=== PATIENT | male | born 1980 | race Two or more races ===

== ENCOUNTER 2016-12-05 10:37 | Emergency (ER) | payer SELFPAY ==
[2016-12-05 10:56] VITALS: BP 131/74
--- NOTE | 2016-12-05 11:10 | EDM.PDOC ---
ED HPI GENERAL MEDICAL PROBLEM - General Chief Complaint: Eye Problems Stated Complaint: ITCHY EYES Time Seen by Provider: 12/05/16 11:00 Source of Information: Reports: Patient History Limitations: Reports: No Limitations - History of Present Illness INITIAL COMMENTS - FREE TEXT/NARRATIVE: 36-year-old male [place] descent presents to the ED with severe itching of both eyes 3 days. It appears this is most likely due to outside exposure to pollen such as ragweed and [place] which are rampant this time of year. 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 No recent exposure to any pets or animal danders. Exam reveals marked injection of both conjunctiva worse on the right as compared to the left with edema of the conjunctiva on the right. Treatment is Pred Forte [place] thalamic drops 2 drops to each eye every 8 hours for the next 3 days or until better. Zaditor eyedrops 2 drops to each eye every 4 hours as needed to relieve itch and inflammation. Expect marked improvement in the next 24-36 hours. 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 drops - Related Data Allergies Allergy/AdvReac Type Severity Reaction Status Date / Time No Known Allergies Allergy Verified 12/05/16 10:56 Home Meds: Home Meds Ketotifen Fumarate [Zaditor] 5 ml OP Q4H PRN #2 drops 12/05/16 [Rx] prednisoLONE Acetate [Pred Forte 1% Ophth Susp] 5 ml EYEBOTH Q8H PRN #1 bottle 12/05/16 [Rx] Social & Family History - Living Situation & Occupation Living situation: Reports: Occupation: Employed ED ROS GENERAL - Review of Systems Review Of Systems: See Below Constitutional: Reports: No Symptoms HEENT: Reports: Eye Discharge, Rhinitis ( severe itching both eyes), Other ( Mostly tears no purulent material) Respiratory: Reports: No Symptoms (to moderate rhinitis from allergy. ) Cardiovascular: Reports: No Symptoms Endocrine: Reports: No Symptoms GI/Abdominal: Reports: No Symptoms : Reports: No Symptoms ED EXAM GENERAL W FULL EYE - Physical Exam Exam: See Below Exam Limited By: Language Barrier (Speaks only Liberian and interview carried out with iPad translation.) General Appearance: Alert, WD/WN, No Apparent Distress, Other Eye Exam: Bilateral Eye: Conjunctival Injection (Eyes are both obviously red and inflamed. Severe bilaterally.) Eyelids: Bilateral: Edema (Lower lids are mildly edematous bilaterally.) Conjunctiva & Sclera: Left: Conjunctival Edema (Marked on the right mild on the left.), Bilateral: Injected (Bilaterally) Pupils: Normal Accommodation Pupillary Size: Bilateral: 5 mm Pupillary Reaction: Bilateral: Brisk Anterior Chamber: Bilateral: Normal Appearance Ears: Normal TMs Nose: Other (Minimal rhinitis with no nasal polyps.) Throat/Mouth: Normal Inspection, Normal Lips, Normal Teeth, Normal Oropharynx Head: Atraumatic, Normocephalic Neck: Normal Inspection, Supple, Non-Tender, Full Range of Motion. No: Lymphadenopathy (L), Lymphadenopathy (R) Respiratory/Chest: No Respiratory Distress, Lungs Clear, Normal Breath Sounds, No Accessory Muscle Use Course - Vital Signs Last Recorded V/S: Last Vital Signs Temp 36.2 C 12/05/16 10:52 Pulse 78 12/05/16 10:52 Resp 16 12/05/16 10:52 BP 131/74 12/05/16 10:52 Pulse Ox 100 12/05/16 10:52 - Radiology Interpretation Free Text/Narrative:: 36-year-old male presents to the ED with bilateral eye itching of his eyes with marked injection. Inflammation started 3-4 days ago. They are extremely itchy. No purulent discharge. Associated mild rhinitis. No chest congestion or wheezing. Initially reveals ears and nose to appear normal oropharynx is clear. Both eyes are severely injected with some edema of the conjunctiva on the right side. Denies any exposure to animal dander that he knows of. Most likely cause is outside pollens at this time of year with exposure to ragweed in [place]. Treatment to be pried forte ophthalmic drops 2 drops each eye every 8 hours until better and uses for the next 3 days. Zaditor ophthalmic drops 2 drops every 4-6 hours as needed to each eye to relieve itching and some of the inflammation. May use as needed until allergy season is over usually not until the first mixon. Departure - Departure Time of Disposition: 11:05 Disposition: Home, Self-Care 01 Condition: Fair Clinical Impression: Allergic conjunctivitis Qualifiers: Laterality: bilateral Qualified Code(s): H10.13 - Acute atopic conjunctivitis, bilateral - Discharge Information Prescriptions: Ketotifen Fumarate [Zaditor] 5 ml OP Q4H PRN #2 drops PRN Reason: Itchy eyes prednisoLONE Acetate [Pred Forte 1% Ophth Susp] 5 ml EYEBOTH Q8H PRN #1 bottle PRN Reason: Severe allergic conjunctivitis Forms: ED Department Discharge Additional Instructions: Evaluation in the emergency room today in regards to severe itching of both eyes with marked redness and swelling. This appears to developed over the last 3 -4 days. Exposure to outside pollens is the suspect cause. Ragweed and [place] are rampant at this time of year. Treatment is to use Pred Forte ophthalmic drops 2 drops to each eye every 8 hours until better. Continues this medication only for 3 days. Use Zaditor ophthalmic drops 2 drops to each eye every 4 hours as needed to reduce itch and inflammation this may be used on a when necessary basis until the allergy season settles down.
== END 2016-12-05 11:15 | disposition home or self-care (01) ==
LOC: JD.ED 10:37
DX: H10.13 Acute atopic conjunctivitis, bilateral (principal)
CPT/HCPCS: 99282; 99283

== ENCOUNTER 2019-06-19 15:04 | Emergency (ER) | payer SELFPAY ==
[2019-06-19] MEDS ORDERED: Sodium Chloride 0.9% 10 ML Syringe FLUSH PRN (15:27)
[2019-06-19] MEDS ORDERED: ceFAZolin 2 GM in Premix Bag 1 BAG IV ONE (15:28)
[2019-06-19] MEDS ORDERED: HYDROmorphone 1 MG/ML Syringe IVPUSH ONE (15:28)
--- NOTE | 2019-06-19 15:50 | EDM.PDOC ---
ED HPI GENERAL MEDICAL PROBLEM - General Chief Complaint: Laceration Stated Complaint: LEFT RING FINGER LACERATION Time Seen by Provider: 06/19/19 15:21 Source of Information: Reports: Patient History Limitations: Reports: Language Barrier - History of Present Illness INITIAL COMMENTS - FREE TEXT/NARRATIVE: The patient presents with a left finger injury. The patient was cutting some lumbar and cut his left ring finger. Part of the tip of his left ring finger is missing. He is right handed. His tetanus is up to date. He has no other injuries. Onset: Sudden Duration: Minutes: Location: Reports: Upper Extremity, Left (ring finger) Quality: Reports: Sharp Severity: Severe Improves with: Reports: None Worsens with: Reports: None Associated Symptoms: Reports: No Other Symptoms Left Finger-Ring Pain Score (Numeric/FACES): 8 - Related Data Allergies Allergy/AdvReac Type Severity Reaction Status Date / Time No Known Allergies Allergy Verified 06/19/19 15:26 Home Meds: Home Meds Cephalexin [Keflex] 500 mg PO QID #40 capsule 10/31/18 [Rx] Hydrocodone/Acetaminophen [Hydrocodon-Acetaminophen 5-325] 1 - 2 each PO Q6HR PRN #20 tablet 10/31/18 [Rx] Past Medical History HEENT History: Reports: Allergic Rhinitis Cardiovascular History: Reports: None Respiratory History: Reports: None Gastrointestinal History: Reports: None Genitourinary History: Reports: None Musculoskeletal History: Reports: None Other Musculoskeletal History: Spends a lot of time on his knees at work Neurological History: Reports: Brain Injury, Other (See Below) Other Neuro History: head bleed Psychiatric History: Reports: None Endocrine/Metabolic History: Reports: None Immunologic History: Reports: None Oncologic (Cancer) History: Reports: None Dermatologic History: Reports: None - Infectious Disease History Infectious Disease History: Reports: None - Past Surgical History Head Surgeries/Procedures: Reports: None GI Surgical History: Reports: Appendectomy Male Surgical History: Reports: None Social & Family History - Family History Family Medical History: Noncontributory HEENT: Reports: None Cardiac: Reports: None Respiratory: Reports: None GI: Reports: None : Reports: None OBGYN: Reports: None Musculoskeletal: Reports: None Neurological: Reports: None Psychiatric: Reports: None Endocrine/Metabolic: Reports: None Hematologic: Reports: None - Tobacco Use Smoking Status *Q: Current Every Day Smoker Years of Tobacco use: 10 Packs/Tins Daily: 0.3 - Caffeine Use Caffeine Use: Reports: None - Alcohol Use Days Per Week of Alcohol Use: 7 Number of Drinks Per Day: 3 Total Drinks Per Week: 21 - Recreational Drug Use Recreational Drug Use: No - Living Situation & Occupation Living situation: Reports: Occupation: Employed ED ROS GENERAL - Review of Systems Review Of Systems: See Below Constitutional: Reports: No Symptoms HEENT: Reports: No Symptoms Respiratory: Reports: No Symptoms Cardiovascular: Reports: No Symptoms Endocrine: Reports: No Symptoms GI/Abdominal: Reports: No Symptoms : Reports: No Symptoms Musculoskeletal: Reports: Other (Partial amputation of the left ring finger) ED EXAM, SKIN/RASH Exam: See Below Exam Limited By: No Limitations General Appearance: Alert, Moderate Distress Ears: Normal External Exam Nose: Normal Inspection Head: Atraumatic, Normocephalic Neck: Normal Inspection Respiratory/Chest: No Respiratory Distress Extremities: Other (the left ring finger has a piece missing from the tip split down the nail to just past the nail bed.) Course - Vital Signs Last Recorded V/S: Last Vital Signs Temp 97.1 F 06/19/19 15:21 Pulse 76 06/19/19 15:21 Resp 22 H 06/19/19 15:21 BP 148/95 H 06/19/19 15:21 Pulse Ox 99 06/19/19 15:21 - Orders/Labs/Meds Orders: Active Orders 24 hr Category Date Time Status Fingers Fourth Digit Lt F3 [CR] Stat Exams 06/19/19 15:28 Taken Sodium Chloride 0.9% [Saline Flush] Med 06/19/19 15:27 Active 10 ml FLUSH ASDIRECTED PRN Saline Lock Insert [OM.PC] Routine Oth 06/19/19 15:27 Ordered Medication Orders Sodium Chloride (Saline Flush) 10 ml FLUSH ASDIRECTED PRN PRN Reason: Keep Vein Open Last Admin: 06/19/19 15:38 Dose: 10 ml Meds: Medications Generic Name Dose Route Start Last Admin Trade Name Freq PRN Reason Stop Dose Admin Sodium Chloride 10 ml 06/19/19 15:27 06/19/19 15:38 Saline Flush FLUSH 10 ml ASDIRECTED PRN Administration Keep Vein Open Discontinued Medications Generic Name Dose Route Start Last Admin Trade Name Freq PRN Reason Stop Dose Admin Hydromorphone HCl 1 mg 06/19/19 15:28 06/19/19 15:38 Dilaudid IVPUSH 06/19/19 15:29 1 mg ONETIME ONE Administration Cefazolin Sodium/Dextrose 2 gm 50 mls @ 100 mls/hr 06/19/19 15:28 06/19/19 15 :39 / Premix IV 06/19/19 15:57 100 mls/hr ONETIME ONE Administration - Re-Assessments/Exams Free Text/Narrative Re-Assessment/Exam: 06/19/19 15:48 I ordered an IV saline lock, ancef 2 grams IV, dilaudid 1mg IV and an x-ray. The x-ray shows the distal phalynx of the left ring finger is missing and there is some pieces. I have called [facility]. I am waiting on a call back. 06/19/19 17:01 Dr Penn called back and he accepted the patient. He will do a revision tonight. 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 Do not eat or drink. Sepsis Event Note - Evaluation Sepsis Screening Result: No Definite Risk - Focused Exam Vital Signs: Vital Signs Temp Pulse Resp BP Pulse Ox 06/19/19 15:21 97.1 F 76 22 H 148/95 H 99 Date Exam was Performed: 06/19/19 Time Exam was Performed: 17:01 - My Orders Last 24 Hours: My Active Orders 06/19/19 15:27 Sodium Chloride 0.9% [Saline Flush] 10 ml FLUSH ASDIRECTED PRN Saline Lock Insert [OM.PC] Routine 06/19/19 15:28 Fingers Fourth Digit Lt F3 [CR] Stat - Assessment/Plan Last 24 Hours: My Active Orders 06/19/19 15:27 Sodium Chloride 0.9% [Saline Flush] 10 ml FLUSH ASDIRECTED PRN Saline Lock Insert [OM.PC] Routine 06/19/19 15:28 Fingers Fourth Digit Lt F3 [CR] Stat
[2019-06-19] MEDS ORDERED: HYDROmorphone 0.5 MG/0.5 ML Syringe IVPUSH ONE (17:10)
[2019-06-19 18:32] VITALS: BP 147/91; PULSE 67
--- NOTE | 2019-06-20 07:21 | CR ---
Left 4th finger: Three views of the left 4th finger were obtained. Comparison: No previous 4th finger study. Findings: Partial soft tissue and bony amputation are seen within the distal 4th finger. Remaining bones of the distal phalanx show several fractures. Base of the distal phalanx is intact. No proximal bony abnormality is otherwise seen. Soft tissue air is noted. Small metallic density overlying the middle phalanx possibly due to foreign body. Impression: 1. Left finger injury as noted above. Diagnostic code #3 This report was dictated in [place] Standard Time
== END 2019-06-19 18:18 ==
LOC: JD.ED 15:04
DX: S68.625A Partial traumatic transphalangeal amputation of left ring finger, initial encounter (principal); F17.210 Nicotine dependence, cigarettes, uncomplicated; W26.8XXA Contact with other sharp object(s), not elsewhere classified, initial encounter
CPT/HCPCS: 73140; 96365; 96375; 96376; 99284; J0690; J1170

== ENCOUNTER 2021-12-26 14:07 | Emergency (ER) | payer SELFPAY ==
[2021-12-26 14:43] VITALS: BP 114/75; PULSE 84
== END 2021-12-26 17:06 | disposition home or self-care (01) ==
LOC: JD.ED 14:07
DX: S69.92XA Unspecified injury of left wrist, hand and finger(s), initial encounter (principal); F17.210 Nicotine dependence, cigarettes, uncomplicated; W26.8XXA Contact with other sharp object(s), not elsewhere classified, initial encounter
CPT/HCPCS: 73140-26-F3; 73140-F3; 99282; 99283